=== PATIENT | male | born 1975 | race Caucasian/White ===

== ENCOUNTER 2017-07-20 19:59 | Emergency (ER) | payer MEDICAID ==
[~2017-07-20] VITALS: Ht 175.3 cm; Wt 76.7 kg
[~2017-07-20 19:59] MED LIST: HYDR-3972 PO; ONDA4TAB12 PO
[2017-07-20] MEDS ORDERED: ketorolac trometh inj. 60 MG/2 ML VIAL IM ONE (20:55)
[2017-07-20] MEDS ORDERED: LORazepam 1 MG tablet PO ONE (21:00)
[2017-07-20 21:05] VITALS: BP 139/55
[2017-07-20] MEDS ORDERED: ibuprofen tablet 400 MG TABLET PO ONE (21:20)
[2017-07-20] MEDS ORDERED: NAPR-1154 PO (21:51)
[2017-07-20] MEDS ORDERED: DOXY100C43 PO (21:51)
== END 2017-07-20 21:56 | disposition left against medical advice (07) ==
LOC: ER 20:00
DX: J40 Bronchitis, not specified as acute or chronic (principal); F12.10 Cannabis abuse, uncomplicated; F15.10 Other stimulant abuse, uncomplicated; Z79.899 Other long term (current) drug therapy
CPT/HCPCS: 71045; 71250; 93005; 99284; J1885; 80053; 83880; 87040

== ENCOUNTER 2017-10-29 22:46 | Emergency (ER) | payer MEDICAID ==
[~2017-10-29] VITALS: Ht 175.3 cm; Wt 77.3 kg
[~2017-10-29 22:46] MED LIST changes: +NAPR-1154 PO
[2017-10-29 23:43] LABS: BASOPHILS % (AUTO) 0.5 % (0-1); EOSINOPHILS # (AUTO) 0.1 X10'3 (0-0.9); EOSINOPHILS % (AUTO) 1.6 % (0-6); HEMATOCRIT 39.8 % (42.0-52.0); HEMOGLOBIN 13.8 g/dl (14.0-17.9); LYMPHOCYTES # (AUTO) 1.5 X10'3 (1.1-4.8); MEAN CORPUSCULAR HEMOGLOBIN 33.2 PG (27.0-31.0); MEAN CORPUSCULAR HGB CONC 34.8 % (33.0-36.5); MEAN CORPUSCULAR VOLUME 95.3 FL (78-98); MEAN PLATELET VOLUME 7.1 FL (7.4-10.4); MONOCYTES # (AUTO) 0.4 X10'3 (0-0.9); MONOCYTES % (AUTO) 9.7 % (2-12); NEUTROPHILS # (AUTO) 2.6 X10'3 (1.8-7.7); NEUTROPHILS % (AUTO) 56.2 % (42-75); PLATELET COUNT 173 X10'3 (140-440); RED BLOOD COUNT 4.17 X10'6 (4.70-6.10); RED CELL DISTRIBUTION WIDTH 13.6 % (11.5-14.5); WHITE BLOOD COUNT 4.6 X10'3 (4.5-11.0)
[2017-10-29 23:54] LABS: PARTIAL THROMBOPLASTIN TIME 25 SECONDS (22-32)
[2017-10-29 23:57] LABS: ALANINE AMINOTRANSFERASE 43 U/L (12-78); ALBUMIN/GLOBULIN RATIO 1.2 (1.1-1.5); ALKALINE PHOSPHATASE 113 IU/L (46-116); ANION GAP 7 (8-16); ASPARTATE AMINO TRANSFERASE 26 U/L (10-37); BILIRUBIN,TOTAL 0.5 MG/DL (0.1-1.0); BLOOD UREA NITROGEN 21 MG/DL (7-18); CALCIUM 8.5 MG/DL (8.5-10.1); CHLORIDE 103 MMOL/L (99-107); GLUCOSE 111 MG/DL (70-104); POTASSIUM 3.4 MMOL/L (3.5-5.1); SODIUM 140 MMOL/L (135-145); TOTAL CARBON DIOXIDE 30.4 MMOL/L (24-32); TOTAL PROTEIN 7.4 G/DL (6.4-8.2); eGFR 82 ML/MIN
[2017-10-30 00:35] VITALS: BP 116/72
== END 2017-10-30 00:38 | disposition home or self-care (01) ==
LOC: ER 22:47
DX: R06.02 Shortness of breath (principal); R07.89 Other chest pain; F17.210 Nicotine dependence, cigarettes, uncomplicated; F12.10 Cannabis abuse, uncomplicated; F15.10 Other stimulant abuse, uncomplicated; F10.10 Alcohol abuse, uncomplicated
CPT/HCPCS: 36415; 71045; 80053; 84484; 85025; 85610; 85730; 93005; 99285